=== PATIENT | male | born 1990 | race Caucasian/White ===

== ENCOUNTER 2022-01-05 15:17 | Emergency (ER) | payer MEDICAID, SELFPAY ==
[2022-01-05] VITALS (8 sets, daily range): BP systolic 107–151; BP diastolic 68–94; PULSE 71–98; RESP 17–22; TEMP 36.9; O2SAT 93–98; BMI 31.1
--- NOTE | 2022-01-05 15:20 | ECG_ITS ---
APPROVED REPORT Exam: Resting ECG HR:79 bpm ECG Measurements Heart Rate 79 AXES NH 145 P 56 QRSd 99 QRS 53 QT 329 T -18 QTc 364 Conclusion SINUS RHYTHM WITH SINUS ARRHYTHMIA MODERATE T-WAVE ABNORMALITY, CONSIDER INFERIOR ISCHEMIA [-0.1+ mV T-WAVE IN II/aVF] ABNORMAL ECG UNCONFIRMED REPORT Electronically signed by : Aj Quezada MD 01/05/2022 21:05:07
--- NOTE | 2022-01-05 15:20 | XR_ITS ---
FINAL REPORT CLINICAL HISTORY: cp FINDINGS: The heart size is normal. The mediastinum is normal. There is mild right lung base atelectasis or scarring. There are no pleural effusions. There is no pneumothorax. There is no osseous abnormality. IMPRESSION: Mild right lung base atelectasis or scarring. Reviewed, Interpreted and Dictated by Néstor Gibbs III, MD Transcribed by Jonas Cornelius Authenticated by Néstor Gibbs III, MD on 01/05/2022 03:56:[address] [facility]
--- NOTE | 2022-01-05 15:21 | HMH.EDGENADL ---
ED Disposition Clinical Impression: Chest wall pain, Palpitations Disposition: Home, Self-Care Condition on Discharge: Good Instructions: DI for Chest Pain, DI for Palpitations Additional Instructions: You have been evaluated for chest pain, palpitations. Please take anti-inflammatory medication like naproxen or ibuprofen as scheduled for the next few days. Follow-up with your primary care doctor. Follow-up with cardiology. Return to the emergency department at once for any new or worsening symptoms, chest pain, shortness of breath, other concerns. Prescriptions: Ibuprofen [Ibuprofen 600mg Tablet] 600 mg PO Q8 #18 tab Transmission Status: Pending to [id number] Referrals: Mana Sánchez APRN [Primary Care Provider] - Rohit Ferrer MD [Staff Physician] - Time of Disposition: 19:15 - Critical Care Critical Care Time: No Attestation: On , the high probability of a clinically significant, sudden or life threatening deterioration of the following system(s) required my full and direct attention, intervention and personal management. The time I documented below is in addition to time spent performing reported procedures but includes the following listed in this critical care notation. Medical Decision Making - Medical Records Medical records reviewed: Yes: I reviewed the patient's medical records. - [place] Inquiry Pt receiving controlled substance: No Vital Signs: 01/05/22 15:17 01/05/22 15:30 01/05/22 16:00 Temperature 98.4 F Temperature Source Oral Pulse Rate 98 H 88 Pulse Rate [Left Radial] 93 H Respiratory Rate 18 22 22 Blood Pressure 132/78 132/78 Blood Pressure [Right Arm] 151/94 H Blood Pressure Mean [Right Arm] 113 Blood Pressure Source Automatic Cuff Automatic Cuff Blood Pressure Source [Right Arm] Automatic Cuff Blood Pressure Position Sitting Sitting Blood Pressure Position [Right Arm] Sitting 02 Sat by Pulse Oximetry 98 94 L 96 Oxygen Delivery Method Room Air Room Air Room Air 01/05/22 16:31 01/05/22 17:01 01/05/22 17:30 Temperature Temperature Source Pulse Rate 79 75 71 Pulse Rate [Left Radial] Respiratory Rate 22 22 19 Blood Pressure 121/70 107/68 L 113/73 Blood Pressure [Right Arm] Blood Pressure Mean [Right Arm] Blood Pressure Source Automatic Cuff Automatic Cuff Automatic Cuff Blood Pressure Source [Right Arm] Blood Pressure Position Sitting Sitting Sitting Blood Pressure Position [Right Arm] 02 Sat by Pulse Oximetry 93 L 94 L 96 Oxygen Delivery Method Room Air Room Air Room Air 01/05/22 18:00 Temperature Temperature Source Pulse Rate 74 Pulse Rate [Left Radial] Respiratory Rate 17 Blood Pressure 121/84 Blood Pressure [Right Arm] Blood Pressure Mean [Right Arm] Blood Pressure Source Automatic Cuff Blood Pressure Source [Right Arm] Blood Pressure Position Sitting Blood Pressure Position [Right Arm] 02 Sat by Pulse Oximetry 97 Oxygen Delivery Method Room Air - Lab Data Lab Results 01/05/22 15:20: WBC 8.9, RBC 5.28, Hgb 15.8, Hct 43.7, MCV 82.8, MCH 29.9, MCHC 36.1 H, RDW 13.2, Plt Count 280, MPV 7.4, Neut % (Auto) 54.1, Lymph % (Auto) 37.2, Alfalfa % (Auto) 5.5, Eos % (Auto) 2.0, Baso % (Auto) 1.2, Neut # (Auto) 4.8, Lymph # (Auto) 3.3, Alfalfa # (Auto) 0.5, Eos # (Auto) 0.2, Baso # (Auto) 0.1 01/05/22 15:20: D-Dimer 0.42 01/05/22 15:20: Sodium 141, Potassium 3.8, Chloride 104, Carbon Dioxide 27, Anion Gap 13.8, BUN 17, Creatinine 1.20, Estimated GFR 70, Est GFR ( Amer) 84, Glucose 132 H, Calcium 9.8, Phosphorus 3.8, Magnesium 1.8, Total Bilirubin 0.7, AST 35, ALT 38, Alkaline Phosphatase 54, Troponin I < 0.01, Total Protein 7.5, Albumin 4.7, Globulin 2.8, Albumin/Globulin Ratio 1.7, TSH 2.82 01/05/22 18:30: Troponin I < 0.01 Result diagrams: 01/05/22 15:20 01/05/22 15:20 Orders (Tests/Meds): ED MEDICATIONS Discontinued Medications Generic Name Dose Route Start Last Admin Trade Name Frealex P
[2022-01-05 15:34] LABS: Basophils # 0.1 K/mm3 (0-0.2); Basophils % 1.2 % (0.1-2.0); Eosinophils # 0.2 K/mm3 (0.0-0.4); Hematocrit 43.7 % (42.0-52.0); Hemoglobin 15.8 g/dL (14.1-18.0); Lymphocytes # 3.3 K/mm3 (0.7-4.5); Lymphocytes % 37.2 % (10-50); Mean Corpuscular HGB Conc 36.1 g/dL (31.8-35.4); Mean Corpuscular Hemoglobin 29.9 pg (27.0-31.2); Mean Corpuscular Volume 82.8 fl (80-94); Mean Platelet Volume 7.4 fl (7.4-10.4); Monocytes # 0.5 K/mm3 (0.1-1.0); Monocytes % 5.5 % (1.7-9.3); Neutrophils # 4.8 K/mm3 (1.8-7.8); Neutrophils % 54.1 % (37.0-80.0); Platelet Count 280 K/mm3 (142-424); Red Blood Count 5.28 M/mm3 (4.60-6.20); Red Cell Distribution Width 13.2 % (11.5-17.5); White Blood Count 8.9 K/mm3 (4.8-10.8)
[2022-01-05 15:39] LABS: Alanine Aminotransferase 38 U/L (12-78); Albumin Level 4.7 g/dl (3.5-5.0); Albumin/Globulin Ratio 1.7 (1.1-1.8); Alkaline Phosphatase 54 U/L (38-126); Anion Gap 13.8 mEq/L (5-15); Aspartate Amino Transferase 35 U/L (17-59); Bilirubin,Total 0.7 mg/dl (0.2-1.3); Blood Urea Nitrogen 17 mg/dl (9-20); Calcium 9.8 mg/dl (8.4-10.2); Carbon Dioxide 27 mmol/L (22.0-30.0); Chloride 104 mmol/L (98-107); Estimated Glomerular Filt Rate 70 ml/min (>60); GFR (African American) 84 ML/MIN (>60); Globulin 2.8 g/dL (1.3-3.2); Glucose 132 mg/dl (74-100); Magnesium 1.8 mg/dl (1.6-2.3); Phosphorous 3.8 mg/dl (2.5-4.5); Potassium 3.8 mmoL/L (3.5-5.1); Sodium 141 mmol/L (136-145); Total Protein,Serum 7.5 g/dl (6.3-8.2)
[2022-01-05 15:44] LABS: D-Dimer 0.42 ug/mL (0.0-0.5)
[2022-01-05 16:00] LABS: Troponin I < 0.01 ng/ml (0.00-0.034)
[2022-01-05 16:12] LABS: Thyroid Stimulating Hormone 2.82 uIU/mL (0.465-4.68)
--- NOTE | 2022-01-05 17:25 | PC.NURSE ---
ED MD speaking with patient at BS
--- NOTE | 2022-01-05 17:37 | ECG_ITS ---
APPROVED REPORT Exam: Resting ECG HR:58 bpm ECG Measurements Heart Rate 58 AXES DE 169 P 36 QRSd 105 QRS 54 QT 374 T 36 QTc 371 Conclusion SINUS BRADYCARDIA NONSPECIFIC ST & T-WAVE ABNORMALITY BORDERLINE ECG UNCONFIRMED REPORT Electronically signed by : Aj Quezada MD 01/06/2022 17:37:42
[2022-01-05 19:01] LABS: Troponin I < 0.01 ng/ml (0.00-0.034)
== END 2022-01-05 20:08 | disposition home or self-care (01) ==
PROVIDERS: Emergency Provider Emergency Medicine; PCP Nurse Practitioner Family
DX: R07.89 Other chest pain (principal); R00.2 Palpitations
CPT/HCPCS: 36415; 71045; 80053; 83735; 84100; 84443; 84484; 85025; 85378; 93005; 99285

== ENCOUNTER → 2022-07-09 15:30 | Outpatient (CLI) | payer MEDICAID, SELFPAY ==
--- NOTE | 2022-07-09 15:36 | CT_ITS ---
FINAL REPORT TECHNIQUE: Axial CT images were obtained through the sinuses/facial bones. Coronal reformats were obtained. This study was performed with techniques to keep radiation doses as low as reasonably achievable (ALARA). Individualized dose reduction techniques using automated exposure control or adjustment of mA and/or kV according to the patient's size were employed. CLINICAL HISTORY: deviated septum FINDINGS: There is mild mucoperiosteal thickening in the ethmoid air cells, maxillary and sphenoid sinuses. There are no air-fluid levels. The the right ostiomeatal unit is patent. There is soft tissue bridging the left ostiomeatal unit. On coronal imaging the nasal septum is deviated to the left. No fractures are identified. IMPRESSION: Mild nasal septal deviation to the left. Mild chronic changes of sinusitis. Reviewed, Interpreted and Dictated by Luis F Santiago MD Transcribed by Jonas Cornelius Authenticated and [facility]
== END ==
PROVIDERS: PCP Nurse Practitioner Family; Visit Provider Student in an Organized Health Care Education/Training Program
DX: J34.2 Deviated nasal septum (principal)
CPT/HCPCS: 70486

== ENCOUNTER 2022-09-22 15:33 | Emergency (ER) | payer MEDICAID, SELFPAY ==
[2022-09-22 15:34] VITALS: BP 133/92; PULSE 82; RESP 17; TEMP 36.6; O2SAT 99; BMI 34.4
[2022-09-22 16:00] VITALS: BP 133/92; PULSE 82; RESP 17; TEMP 36.6; O2SAT 99; BMI 34.3
--- NOTE | 2022-09-22 16:26 | EXP.UTC ---
Discharge Plan Disposition Patient Disposition: Home, Self-Care Condition: Good Prescriptions Prescriptions: No Action fexofenadine [Belinda Allergy] 60 mg tablet 60 mg PO BID PRN azelastine 137 mcg (0.1 %) aerosol,spray 1 spray intranasal BID Qty: 30 6RF Rx Instructions: administer into each nostril Referrals Follow up/Referrals: Mana Sánchez APRN [Primary Care Provider] - See instructions Activity Restrictions/Add. Instructions Additional Instructions/Restrictions: Call and make appointment with your Primary Care Physician for further evaluation and treatment if needed Keep a log of your blood pressure readings make sure that you are using a cuff that measures acurately Continue to use your Nasocort Straight to ER if any life threatening symptoms Follow up with ENT if needed Clinical Impressions Clinical Impression: Blood pressure check Stand Alone Forms Stand Alone Forms: Work/School Release Instructions Patient Instructions: Blood Pressure Testing and Measurement, The [employer] Diet Discharge ED Provider: Yesi Mireles [facility] General Stated complaint: dizzy; lightheaded; Mode of Arrival: Ambulatory Source of Information: Patient Limitations: No Limitations Time Seen by Provider: 09/22/22 16:26 Description of Symptoms (Recalled from Triage Doc. by RN): Patient c/o dizzy/light headedness that has been present for 6 months. He was evaluated with his PCP and told he had fluid in his ears, possibly. Patient has no new complaints today. He just wanted to get a check-up because it has been awhile. HEENT Symptoms (Recalled from RN notes): No Resp Symptoms (Recalled from RN notes): No Skin Symptoms (Recalled from RN notes): No MS Symptoms (Recalled from RN notes): No Functional Status (Recalled from RN notes): wnl History of Present Illness Provider Complaint: Patient states that he has had some dizziness and light headedness over the last 6mths and has seen his PCP and ENT and they said he had fluid in his ears State that he has been checking his blood pressure and he feels like it has been up States that the highest being 140/90 and it makes him feel nervous States that he has been recording it and lost the paper and has made several appointments with his PCP but missed them States that today he is feeling ok and not having any dizziness or lightheaded but got to thinking about it and wanted to get his blood pressure checked and see if he can get a check up since he missed the one with PCP Related Data Home Medications Medication Instructions Recorded Confirmed fexofenadine 60 mg tablet (Belinda 60 mg PO BID PRN 06/22/22 07/14/22 Allergy) Previous Rx's Medication Instructions Recorded azelastine 137 mcg (0.1 %) nasal 1 spray intranasal BID #30 mL 06/22/22 spray aerosol Allergies Allergy/AdvReac Type Severity Reaction Status Date / Time No Known Allergies Allergy Verified 07/14/22 15:46 Worker's Comp Is this a Worker's Comp case?: No [facility] Disclaimer: The information contained in this section may have been updated after the patient was seen, as this information can be updated by other users. 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 Anxiety Deviated septum Surgical History History of wisdom tooth extraction, class I edentulism Family History Grandmother Epilepsy Social History Smoking Status: Current every day smoker tobacco type: cigarettes and smokeless tobacco years smoked: 10 quit status: considering quitting alcohol intake: never current occupational status: unemployed Travel in the last 8 weeks: None ROS Obtained: Yes All systems reviewed & no additional complaints except as documented and Yes Systems reviewed as appropriate & no additi
[2022-09-22 16:44] VITALS: BP 133/92; PULSE 82; RESP 17; TEMP 36.6; O2SAT 99
== END 2022-09-22 16:47 | disposition home or self-care (01) ==
PROVIDERS: Emergency Provider Nurse Practitioner; PCP Nurse Practitioner Family
DX: R42 Dizziness and giddiness (principal)
CPT/HCPCS: 99212; G0463

== ENCOUNTER 2022-10-02 10:04 | Emergency (ER) | payer MEDICAID, SELFPAY ==
[2022-10-02 10:50] VITALS: BP 148/101; PULSE 70; RESP 18; TEMP 36.9; O2SAT 99; BMI 29.2
--- NOTE | 2022-10-02 11:17 | EXP.UTC ---
Discharge Plan Disposition Patient Disposition: Home, Self-Care Condition: Good Prescriptions Prescriptions: New permethrin [Elimite] 5 % cream 1 applic topical Q14D Qty: 60 0RF Rx Instructions: apply second treatment 14 days after first treatment if live mites remain No Action fexofenadine [Belinda Allergy] 60 mg tablet 60 mg PO BID PRN azelastine 137 mcg (0.1 %) aerosol,spray 1 spray intranasal BID Qty: 30 6RF Rx Instructions: administer into each nostril Referrals Follow up/Referrals: Mana Sánchez APRN [Primary Care Provider] - See instructions Activity Restrictions/Add. Instructions Additional Instructions/Restrictions: wash all clothes and bed clothes in hot water Clinical Impressions Clinical Impression: Bug bite Instructions Patient Instructions: Insect Bites and Stings Discharge ED Provider: Angela ([facility])Isabel [facility] HPI General Stated complaint: Rash on legs w/ burning and itching Mode of Arrival: Ambulatory Source of Information: Patient Limitations: No Limitations Time Seen by Provider: 10/02/22 11:17 Description of Symptoms (Recalled from Triage Doc. by RN): PATIENT C/O ITCHY, BURNING RASH TO BILATERAL THIGHS AND FOREARMS HEENT Symptoms (Recalled from RN notes): No Resp Symptoms (Recalled from RN notes): No Skin Symptoms (Recalled from RN notes): Yes MS Symptoms (Recalled from RN notes): No Functional Status (Recalled from RN notes): WNL History of Present Illness Provider Complaint: 32 yr old male presents for a rash to legs, and arms. pt states he recently got a mini pig and the vet said it had mites. pt states he has tried everything otc and nothing is helping this rash and itching. Related Data Home Medications Medication Instructions Recorded Confirmed fexofenadine 60 mg tablet (Belinda 60 mg PO BID PRN 06/22/22 07/14/22 Allergy) Previous Rx's Medication Instructions Recorded azelastine 137 mcg (0.1 %) nasal 1 spray intranasal BID #30 mL 06/22/22 spray aerosol permethrin 5 % topical cream 1 applic topical Q14D 2 doses #60 10/02/22 (Elimite) grams Allergies Allergy/AdvReac Type Severity Reaction Status Date / Time No Known Allergies Allergy Verified 07/14/22 15:46 Worker's Comp Is this a Worker's Comp case?: No PFSH PFSH Disclaimer: The information contained in this section may have been updated after the patient was seen, as this information can be updated by other users. 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 , YARROW GATHERER) Anxiety Deviated septum Surgical History , YARROW GATHERER) History of wisdom tooth extraction, class I edentulism Family History , YARROW GATHERER) Epilepsy Grandmother Social History , YARROW GATHERER) Smoking Status: Current every day smoker tobacco type: cigarettes and smokeless tobacco years smoked: 10 quit status: considering quitting alcohol intake: never current occupational status: unemployed Travel in the last 8 weeks: None ROS Obtained: Yes All systems reviewed & no additional complaints except as documented Constitutional Constitutional: Reports system reviewed and no additional complaints, except as documented Eyes Eyes: Reports system reviewed and no additional complaints, except as documented ENT Ears, Nose, Mouth, and Throat: Reports system reviewed and no additional complaints, except as documented Cardiovascular Cardiovascular: Reports system reviewed and no additional complaints, except as documented Respiratory Respiratory: Reports system reviewed and no additional complaints, except as documented Musculoskeletal Musculoskeletal: Reports system reviewed and no additional complaints, except as documented Integumentary/Breasts Skin/Breast: Reports system reviewed and no additional complaints, except as documented, Rep
[2022-10-02 11:32] VITALS: BP 148/101; PULSE 70; RESP 18; TEMP 36.9; O2SAT 99
== END 2022-10-02 11:45 | disposition home or self-care (01) ==
PROVIDERS: Emergency Provider Nurse Practitioner Family; PCP Nurse Practitioner Family
DX: S70.362A Insect bite (nonvenomous), left thigh, initial encounter (principal); S70.361A Insect bite (nonvenomous), right thigh, initial encounter; S50.862A Insect bite (nonvenomous) of left forearm, initial encounter; S50.861A Insect bite (nonvenomous) of right forearm, initial encounter; R21 Rash and other nonspecific skin eruption; L29.8 Other pruritus
CPT/HCPCS: 96372; 99212; 99213; G0463

== ENCOUNTER 2023-04-13 17:15 | Emergency (ER) | payer MEDICAID, SELFPAY ==
--- NOTE | 2023-04-13 17:15 | ECG_ITS ---
APPROVED REPORT Exam: Resting ECG HR:73 bpm ECG Measurements Heart Rate 73 AXES SD 157 P 38 QRSd 102 QRS 55 QT 364 T 33 QTc 390 Conclusion SINUS RHYTHM NONSPECIFIC T-WAVE ABNORMALITY BORDERLINE ECG UNCONFIRMED REPORT Electronically signed by : Aj Quezada MD 04/15/2023 08:42:52
[2023-04-13 17:18] VITALS: BP 145/81; PULSE 81; RESP 16; TEMP 36.9; O2SAT 98; BMI 30.7
--- NOTE | 2023-04-13 17:22 | XR_ITS ---
PROCEDURE INFORMATION: Exam: XR Chest Exam date and time: 04/13/2023 5:25 PM Age: 32 years old Clinical indication: Pain; Left-sided; Additional info: Chest pain TECHNIQUE: Imaging protocol: Radiologic exam of the chest. Views: 1 view. COMPARISON: CR XR CHEST PORTABLE 01/05/2022 3:23 PM FINDINGS: Lungs: See Pleural spaces finding. Pleural spaces: Low lung volumes are present without large pleural effusions or consolidations. Heart/Mediastinum: Unremarkable. No cardiomegaly. Bones/joints: Unremarkable. IMPRESSION: No acute findings.
--- NOTE | 2023-04-13 17:26 | HMH.EDGENADL ---
Discharge Plan Disposition Patient Disposition: Home, Self-Care Condition: Good Prescriptions Prescriptions: No Action fexofenadine [Belidna Allergy] 60 mg tablet 60 mg PO BID PRN azelastine 137 mcg (0.1 %) aerosol,spray 1 spray intranasal BID Qty: 30 6RF Rx Instructions: administer into each nostril permethrin [Elimite] 5 % cream 1 applic topical Q14D Qty: 60 0RF Rx Instructions: apply second treatment 14 days after first treatment if live mites remain Referrals Follow up/Referrals: Provider,Referral, MD [Referring] - See instructions Activity Restrictions/Add. Instructions Additional Instructions/Restrictions: Please follow-up with your primary care provider. Please return to the emergency department if you develop any new or worsening symptoms or become concerned for your health. Clinical Impressions Clinical Impression: Chest wall pain Instructions Patient Instructions: DI for Atypical Chest Pain Discharge ED Provider: Marc Lang General Adult HPI General Chief complaint: Chest Pain Stated complaint: chest pain Time Seen by Provider: 04/13/23 17:25 Mode of Arrival: Ambulatory Source of Information: Patient Limitations: No Limitations Description of Symptoms (Recalled from ER Triage Doc. by RN): Pt reports intermittent chest pain that began earlier today. Pt describes pain as intermittent in nature, sharp, lasts for approx 5 minutes at a times. Pt denies SOA, fever and cough History of Present Illness HPI narrative: 32-year-old male, reported history of anxiety presents with intermittent chest pain, left-sided, began this morning but was also present yesterday. Reports no cardiac history. Denies any shortness of breath or abdominal pain. No recent fever or illness. Related Data Home Medications Medication Instructions Recorded Confirmed fexofenadine 60 mg tablet (Belinda 60 mg PO BID PRN 06/22/22 07/14/22 Allergy) Previous Rx's Medication Instructions Recorded azelastine 137 mcg (0.1 %) nasal 1 spray intranasal BID #30 mL 06/22/22 spray aerosol permethrin 5 % topical cream 1 applic topical Q14D 2 doses #60 10/02/22 (Elimite) grams Allergies Allergy/AdvReac Type Severity Reaction Status Date / Time No Known Allergies Allergy Verified 07/14/22 15:46 [facility] Disclaimer: The information contained in this section may have been updated after the patient was seen, as this information can be updated by other users. 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 , [employer]) Anxiety Deviated septum Surgical History , [employer] ME[employer] C[employer]TER) History of wisdom tooth extraction, class I edentulism Family History , [employer] ME[employer] C[employer]TER) Epilepsy Grandmother Social History , [employer] ME[employer] C[employer]TER) Smoking Status: Former smoker years smoked: 10 quit status: considering quitting alcohol intake: never current occupational status: unemployed Travel in the last 8 weeks: None ROS Obtained: Yes All systems reviewed & no additional complaints except as documented Physical Exam General General appearance: alert and in no apparent distress Head Head exam: atraumatic and normocephalic Eye Eye exam: Present normal appearance, PERRL and EOMI ENT ENT exam: Present normal oropharynx and normal external ear exam Neck Neck exam: Present normal inspection and full ROM Chest Chest inspection: Present normal inspection and symmetric chest wall rise; Absent tenderness Respiratory Respiratory exam: Present normal lung sounds bilaterally; Absent respiratory distress Cardiovascular Cardiovascular exam: Present regular rate and normal rhythm Abdominal Exam Abdominal exam: Present soft; Absent distention, tenderness or guarding Extremities Exam Extremities exam: Present normal inspection; Absent edema or joint swelling
[2023-04-13 17:42] LABS: Basophils % 0.4 % (0.1-2.0); Eosinophils # 0.2 K/mm3 (0.0-0.4); Eosinophils % 2.3 % (0.1-12.0); Hematocrit 47.3 % (42.0-52.0); Lymphocytes # 2.8 K/mm3 (0.7-4.5); Lymphocytes % 37.1 % (10-50); Mean Corpuscular HGB Conc 33.7 g/dL (31.8-35.4); Mean Corpuscular Hemoglobin 28.3 pg (27.0-31.2); Mean Corpuscular Volume 83.9 fl (80-94); Mean Platelet Volume 7.1 fl (7.4-10.4); Monocytes # 0.5 K/mm3 (0.1-1.0); Monocytes % 6.5 % (1.7-9.3); Neutrophils % 53.7 % (37.0-80.0); Platelet Count 245 K/mm3 (142-424); Red Blood Count 5.64 M/mm3 (4.60-6.20); Red Cell Distribution Width 13.3 % (11.5-17.5); White Blood Count 7.4 K/mm3 (4.8-10.8)
--- NOTE | 2023-04-13 17:42 | PC.NURSE ---
Dr. Lang at BS for patient eval
[2023-04-13 17:45] LABS: Chloride 103 mmol/L (98-107)
[2023-04-13 17:46] LABS: Potassium 3.9 mmoL/L (3.5-5.1); Sodium 141 mmol/L (136-145)
[2023-04-13 17:49] LABS: Anion Gap 15.9 mEq/L (5-15); Blood Urea Nitrogen 20 mg/dl (9-20); Calcium 9.9 mg/dl (8.4-10.2); Carbon Dioxide 26 mmol/L (22.0-30.0); Creatinine Clearance Estimated 113 mL/min (50-200); Estimated Glomerular Filt Rate 63 ml/min (>60); GFR (African American) 76 ML/MIN (>60); Glucose 99 mg/dl (74-100)
[2023-04-13 17:57] VITALS: PULSE 68
[2023-04-13 18:01] VITALS: BP 132/83; PULSE 69; RESP 20; O2SAT 96
[2023-04-13 18:03] LABS: Troponin I < 0.01 ng/ml (0.00-0.034)
[2023-04-13 18:15] VITALS: BP 132/83; PULSE 69; RESP 20; TEMP 36.9
== END 2023-04-13 18:16 | disposition home or self-care (01) ==
PROVIDERS: Emergency Provider Emergency Medicine; PCP Nurse Practitioner Family
DX: R07.9 Chest pain, unspecified (principal); F41.9 Anxiety disorder, unspecified; Z87.891 Personal history of nicotine dependence
CPT/HCPCS: 71045; 80048; 84484; 85025; 93005; 99285

== ENCOUNTER → 2023-07-14 10:59 | Outpatient (CLI) | payer MEDICAID, SELFPAY ==
[2023-07-14 11:35] LABS: Basophils % 0.6 % (0.1-2.0); Eosinophils # 0.2 K/mm3 (0.0-0.4); Eosinophils % 3.1 % (0.1-12.0); Hematocrit 44.6 % (42.0-52.0); Hemoglobin 16.1 g/dL (14.1-18.0); Lymphocytes # 2.1 K/mm3 (0.7-4.5); Lymphocytes % 36.4 % (10-50); Mean Corpuscular HGB Conc 36.1 g/dL (31.8-35.4); Mean Corpuscular Hemoglobin 29.9 pg (27.0-31.2); Mean Platelet Volume 7.6 fl (7.4-10.4); Monocytes # 0.4 K/mm3 (0.1-1.0); Monocytes % 6.8 % (1.7-9.3); Platelet Count 199 K/mm3 (142-424); Red Blood Count 5.37 M/mm3 (4.60-6.20); Red Cell Distribution Width 13.1 % (11.5-17.5); White Blood Count 5.7 K/mm3 (4.8-10.8)
[2023-07-14 11:46] LABS: Hemoglobin A1C 5.5 % (4.0-6.0)
[2023-07-14 12:15] LABS: Alanine Aminotransferase 49 U/L (12-78); Albumin Level 4.9 g/dl (3.5-5.0); Albumin/Globulin Ratio 1.6 (1.1-1.8); Alkaline Phosphatase 55 U/L (38-126); Anion Gap 13.7 mEq/L (5-15); Aspartate Amino Transferase 46 U/L (17-59); Bilirubin,Total 0.5 mg/dl (0.2-1.3); Blood Urea Nitrogen 19 mg/dl (9-20); Carbon Dioxide 31 mmol/L (22.0-30.0); Chloride 100 mmol/L (98-107); Chol/HDL Ratio 3.3 (1-3.5); Cholesterol 163 mg/dl (140-200); Estimated Glomerular Filt Rate 69 ml/min (>60); GFR (African American) 83 ML/MIN (>60); Glucose 102 mg/dl (74-100); HDL Cholesterol 50 mg/dl (40-60); Potassium 4.7 mmoL/L (3.5-5.1); Sodium 140 mmol/L (136-145); Total Protein,Serum 7.9 g/dl (6.3-8.2); Triglycerides 94 mg/dl (30-150); VLDL Cholesterol 19 mg/dL (0-40)
[2023-07-14 12:26] LABS: Direct LDL Cholesterol 87.12 mg/dL (100-129)
[2023-07-14 12:45] LABS: Thyroid Stimulating Hormone 3.56 uIU/mL (0.465-4.68)
== END ==
LOC: LAB 11:00
PROVIDERS: PCP Nurse Practitioner Family; Visit Provider Nurse Practitioner Family
DX: Z00.00 Encounter for general adult medical examination without abnormal findings (principal); R00.2 Palpitations
CPT/HCPCS: 36415; 80053; 80061; 83036; 84443; 85025

== ENCOUNTER 2023-07-29 11:03 | Emergency (ER) | payer MEDICAID, SELFPAY ==
[2023-07-29 11:04] VITALS: BP 135/78; PULSE 68; RESP 18; TEMP 37.1; O2SAT 98; BMI 31.9
--- NOTE | 2023-07-29 11:53 | EXP.UTC ---
Discharge Plan Disposition Patient Disposition: Home, Self-Care Condition: Good Prescriptions Prescriptions: New azithromycin [Zithromax] 250 mg tablet 250 mg PO UD DOSE PK Qty: 6 0RF Rx Instructions: Take two (2) tablets today, then one (1) tablet days #2 thru #5 benzonatate [benzonatate] 100 mg capsule 100 mg PO TIDP PRN (Reason: Cough) Qty: 30 0RF prednisone [prednisone] 20 mg tablet 20 mg PO BID 3 Days Qty: 6 0RF No Action fexofenadine [Belinda Allergy] 60 mg tablet 60 mg PO BID PRN (Reason: allergies) azelastine 137 mcg (0.1 %) aerosol,spray 1 spray intranasal BID Qty: 30 6RF Rx Instructions: administer into each nostril Referrals Follow up/Referrals: Pastora Clayton APRN [Primary Care Provider] - See instructions Activity Restrictions/Add. Instructions Additional Instructions/Restrictions: Drink plenty of fluids. Take tylenol or ibuprofen for pain or fever. Take the medications as directed. Follow up with your regular doctor. GO TO THE ER FOR ANY WORSENING SYMPTOMS Clinical Impressions Clinical Impression: Sinusitis, Acute viral syndrome Stand Alone Forms Stand Alone Forms: Work/School Release Instructions Patient Instructions: Sore Throat, DI for Pharyngitis/Tonsillopharyngitis -- Adult, DI for Sinusitis Discharge ED Provider: Jose Elizalde [facility] General Stated complaint: head congestion sore throat Time Seen by Provider: 07/29/23 11:53 History of Present Illness Provider Complaint: He states that for the past 2 days he has had sinus congestion and sore throat. Related Data Home Medications Medication Instructions Recorded Confirmed fexofenadine 60 mg tablet (Belinda 60 mg PO BID PRN allergies 06/22/22 07/29/23 Allergy) Previous Rx's Medication Instructions Recorded azelastine 137 mcg (0.1 %) nasal 1 spray intranasal BID #30 mL 06/22/22 spray aerosol azithromycin 250 mg tablet 250 mg PO UD DOSE PK #6 tabs 07/29/23 (Zithromax) benzonatate 100 mg capsule 100 mg PO TIDP PRN Cough #30 caps 07/29/23 prednisone 20 mg tablet 20 mg PO BID 3 days #6 tabs 07/29/23 Allergies Allergy/AdvReac Type Severity Reaction Status Date / Time No Known Allergies Allergy Verified 07/29/23 11:57 [facility] Disclaimer: The information contained in this section may have been updated after the patient was seen, as this information can be updated by other users. 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 , SPA HOST) Anxiety Deviated septum Surgical History , SPA HOST) History of wisdom tooth extraction, class I edentulism Family History , SPA HOST) Epilepsy Grandmother Social History Smoking Status: Former smoker tobacco type: cigarettes and smokeless tobacco years smoked: 10 quit status: considering quitting alcohol intake: never current occupational status: unemployed Travel in the last 8 weeks: None ROS Obtained: Yes All systems reviewed & no additional complaints except as documented Constitutional Constitutional: Reports poor appetite Eyes Eyes: Reports system reviewed and no additional complaints, except as documented ENT Ears, Nose, Mouth, and Throat: Reports as per HPI Cardiovascular Cardiovascular: Reports system reviewed and no additional complaints, except as documented and Denies chest pain Respiratory Respiratory: Denies shortness of breath, Denies chest congestion, Reports cough, Denies stridor and Denies wheezing Gastrointestinal Gastrointestingal: Reports system reviewed and no additional complaints, except as documented; Denies abdominal pain, diarrhea or vomiting Musculoskeletal Musculoskeletal: Reports system reviewed and no additional complaints, except as documented and Denies arthralgias Integumentary/Breasts Skin/Jessica
[2023-07-29 12:13] LABS: UTC Influenza A Antigen Negative (Negative); UTC Strep Screen (Rapid) Negative (Negative)
[2023-07-29 12:14] LABS: UTC Influenza B Antigen Negative (Negative)
[2023-07-29 13:10] VITALS: BP 135/78; PULSE 68; RESP 18; TEMP 37.1; O2SAT 98
== END 2023-07-29 13:10 | disposition home or self-care (01) ==
PROVIDERS: Emergency Provider Nurse Practitioner Family; PCP Nurse Practitioner Family
DX: J01.90 Acute sinusitis, unspecified (principal); R07.0 Pain in throat; R09.81 Nasal congestion; B34.9 Viral infection, unspecified; Z87.891 Personal history of nicotine dependence
CPT/HCPCS: 87635; 87804; 87880; 99212; 99214; G0463

== ENCOUNTER 2023-09-17 11:24 | Emergency (ER) | payer OTHER, SELFPAY ==
[2023-09-17 11:35] VITALS: BP 112/65; PULSE 80; RESP 20; TEMP 37.3; O2SAT 97; BMI 30.2
--- NOTE | 2023-09-17 11:42 | ED_ITS ---
Discharge Plan Disposition Patient Disposition: Home, Self-Care Condition: Good Prescriptions Prescriptions: New prednisone [prednisone] 20 mg tablet 20 mg PO BID 5 Days Qty: 10 0RF benzonatate 100 mg capsule 100 mg PO TID PRN (Reason: cough) Qty: 30 0RF amoxicillin-pot clavulanate 875-125 mg Tablet 1 tab PO Q12H Qty: 20 0RF guaifenesin [Mucinex] 600 mg tablet extended release 12hr 1,200 mg PO BID PRN (Reason: cough) Qty: 20 0RF No Action azelastine 137 mcg (0.1 %) aerosol,spray 1 spray INTRANASAL BID Patient Comments: USE 1 SPRAY(S) IN EACH NOSTRIL TWICE DAILY Referrals Follow up/Referrals: Provider,Referral, MD [Primary Care Provider] - See instructions Activity Restrictions/Add. Instructions Additional Instructions/Restrictions: * Start antibiotic today. Be sure to complete entire prescription even if feeling better * Monitor temp. Tylenol every 4 hours as needed and / or ibuprofen every 6 hours as needed ( As long as your primary care physician has told you that it ok to take both. For fever/aches/pains ER if no less than 101 despite Tylenol or Motrin * Humidifier/vaporizer or hot steamy shower * Mucinex during the day for your cough and cough suppressant only at night. Be sure to drink lots of water. Insurance may not cover a prescriptions for mucinex. Might be cheaper to get 400mg tablets and take 2 tablet in the morning, mid-day and evening with lots of water. *Promethazine DM cough syrup will cause drowsiness. Use only at night. No driving, operating machinery or caring for small children after taking it *Tessalon Perles will not cause drowsiness but use at bedtime to help stop cough so that you may get some rest. *Start steroid today. Helps with inflammation therefore, cough and wheezing. Follow directions on the package. Reviewed side effects. Patient reports taking them before. Follow up IMMEDIATELY for new or worsening of symptoms OR no noticeable improvement over the next 48-72 hours. 911 immediately for any life threatening symptoms such as chest pain or difficulty breathing Clinical Impressions Clinical Impression: Sinusitis Qualifiers: Sinusitis location: unspecified location Chronicity: unspecified Qualified Code(s): J32.9 - Chronic sinusitis, unspecified Instructions Patient Instructions: DI for Sinusitis, Sinusitis Discharge ED Provider: Yesi Mireles [facility] [place] HPI General Stated complaint: cough,congestion Mode of Arrival: Ambulatory Source of Information: Patient Limitations: No Limitations Time Seen by Provider: 09/17/23 11:42 Description of Symptoms (Recalled from Triage Doc. by RN): PATIENT C/O CHEST AND HEAD CONGESTION, HEADACHE, BODY ACHES, COUGH AND NASAL CONGESTION SINCE YESTERDAY HEENT Symptoms (Recalled from RN notes): Yes Resp Symptoms (Recalled from RN notes): Yes Skin Symptoms (Recalled from RN notes): No MS Symptoms (Recalled from RN notes): No Functional Status (Recalled from RN notes): WNL History of Present Illness Provider Complaint: Patient states that he was already feeling sick but went out into the weather yesterday and it got worse States that he is having sinus pain and pressure, pressure behind his eyes, scratchy throat, feeling achy, headache and feeling like it is trying to move into his chest States that this morning he was feeling worse so he came in Related Data Home Medications Medication Instructions Recorded Confirmed azelastine 137 mcg (0.1 %) nasal 1 spray intranasal BID 09/17/23 09/17/23 spray aerosol Previous Rx's Medication Instructions Recorded amoxicillin 875 mg-potassium 1 tab PO Q12H #20 tabs 09/17/23 clavulanate 125 mg tablet benzonatate 100 mg capsule 100 mg PO TID PRN cough #30 caps 09/17/23 guaifenesin 600 mg tablet, 1,200 mg PO BID PRN cough #20 tabs 09/17/23 extended release 12 hr (Mucinex) prednisone 20 mg tablet 20 mg PO BID 5 days #10 tabs 09/17/23 Allergies Allergy/AdvReac Type Severity Reaction Status Date / Time No Known Allergies Allergy Verified 07/29/23 11:57 Worker's Comp Is this a Worker's Comp case?: No [facility] Disclaimer: The information contained in this section may have been updated after the patient was seen, as this information can be updated by other users. 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) History of wisdom tooth extraction, class I edentulism Family History , AGED OR DISABLED CARER) Epilepsy Grandmother Social History Smoking Status: Former smoker tobacco type: cigarettes and smokeless tobacco years smoked: 10 quit status: considering quitting alcohol intake: never current occupational status: unemployed Travel in the last 8 weeks: None ROS Obtained: Yes All systems reviewed & no additional complaints except as documented and Yes Systems reviewed as appropriate & no additional complaints except as documented Constitutional Constitutional: Reports system reviewed and no additional complaints, except as documented, Reports as per HPI and Reports body ache ENT Ears, Nose, Mouth, and Throat: Reports system reviewed and no additional complaints, except as documented, Reports as per HPI, Reports sinus pain and Reports sinus pressure Cardiovascular Cardiovascular: Reports system reviewed and no additional complaints, except as documented and Reports as per HPI Respiratory Respiratory: Reports system reviewed and no additional complaints, except as documented, Reports as per HPI, Denies shortness of breath, Reports chest congestion and Reports cough Gastrointestinal Gastrointestingal: Reports system reviewed and no additional complaints, except as documented and as per HPI Physical Exam General General appearance: alert and in no apparent distress ENT ENT exam: Present mucous membranes moist Expanded ENT Exam Nose exam: Present sinus tenderness Throat exam: Present other (Pharyngeal erythema noted with PND) Respiratory Respiratory exam: Present normal lung sounds bilaterally; Absent respiratory distress or wheezes Cardiovascular Cardiovascular exam: Present regular rate and normal rhythm Neurological Exam Neurological exam: Present alert, oriented X3 and normal gait Medical Decision Making Harrison Inquiry Pt receiving controlled substance: No Harrison was queried for this patient: No Vital Signs: 09/17/23 11:35 Temperature 99.1 F Temperature Source Oral Pulse Rate [Left Brachial] 80 Respiratory Rate 20 Blood Pressure [Left Arm] 112/65 Blood Pressure Mean [Left Arm] 80 Blood Pressure Source [Left Arm] Automatic Cuff Blood Pressure Position [Left Arm] Sitting 02 Sat by Pulse Oximetry 97 Oxygen Delivery Method Room Air Lab Data Lab results reviewed: Yes I reviewed the patient's lab results.
[2023-09-17 11:59] LABS: UTC Influenza A Antigen Negative (Negative)
[2023-09-17 12:00] LABS: UTC Influenza B Antigen Negative (Negative)
[2023-09-17 12:11] VITALS: BP 112/65; PULSE 80; RESP 20; TEMP 37.3; O2SAT 97
== END 2023-09-17 12:17 | disposition home or self-care (01) ==
PROVIDERS: Emergency Provider Nurse Practitioner
DX: J01.90 Acute sinusitis, unspecified (principal); R09.81 Nasal congestion; R07.0 Pain in throat; R51.9 Headache, unspecified; R05.9 Cough, unspecified; M79.18 Myalgia, other site; Z87.891 Personal history of nicotine dependence
CPT/HCPCS: 87804; 99212; 99214; G0463

== ENCOUNTER 2024-06-10 10:19 | Emergency (ER) | payer OTHER, SELFPAY ==
[2024-06-10 10:45] VITALS: BP 109/73; PULSE 84; RESP 19; TEMP 36.6; O2SAT 97; BMI 28.6
--- NOTE | 2024-06-10 10:48 | ED_ITS ---
Discharge Plan Disposition Patient Disposition: Home, Self-Care Condition: Good Prescriptions Prescriptions: New azithromycin [Zithromax Z-Candelario] 250 mg tablet See Rx Instructions .ROUTE .COMPLEX 5 Days Qty: 6 0RF Rx Instructions: For 250 mg dose pack: take 500 mg today (day 1), then 250 mg for 4 days (days 2-5) methylprednisolone [Medrol (Candelario)] 4 mg tablets,dose pack See Rx Instructions .Route .COMPLEX 6 Days Qty: 21 0RF Rx Instructions: taper pack; [id number] [Bromfed DM] 2-30-10 mg/5 mL syrup 10 ml PO Q6H PRN (Reason: cold symptoms) Qty: 200 0RF Referrals Follow up/Referrals: Pastora Clayton APRN [Primary Care Provider] - See instructions Activity Restrictions/Add. Instructions Additional Instructions/Restrictions: *Monitor Temp, Over the counter Motrin or Tylenol as directed/as needed Tylenol every 4 hours and Motrin every 6 hours (as long as your family doctor has told you that you can take it) for fever or pain. and straight to ER if unable to lower temp less than 101.0 after medication given *Warm salt water gargles may help to soothe the throat *Throat Lozenges? *Warm fluids like tea with honey may help to soothe the throat? *Sleep elevated *Humidifier/Vaporizer Take medication as prescribed *Bromfed may cause drowsiness. Know how it effects you (your child) before driving, caring for small child, or sending your child to school. Not other antihistamines/allergy medications while taking bromfed Your throat swab was sent for culture. Those results are typically sent to your primary care. Be sure to follow up in 2-3 days with your family doctor/primary care physician if no improvement so they can review those result and treat if necessary. If you don?t have a primary care doctor, I recommend you get one but in the mean time, you will have to return to a walk in clinic Follow up IMMEDIATELY for new or worsening symptoms or no Noticeable improvement over the next 48-72 hours. 911 for difficulty breathing or swallowing Clinical Impressions Clinical Impression: Sinusitis Instructions Patient Instructions: DI for Sinusitis, Sinusitis Print Language Print Language: Croatian Discharge ED Provider: Yesi Mireles [facility] [place] General Stated complaint: sore throat cough congestion head ache diarrhea Time Seen by Provider: 06/10/24 10:49 History of Present Illness Provider Complaint: Patient states that he has been having sinus issues and started feeling bad on Tuesday States that he has been having sinus pain and pressure, sore throat, headache, diarrhea and over all not feeling well States that drainage in dark yellow and at times he will cough it up, States today he wasnt feeling any better so he came in to get checked Related Data Previous Rx's ?Medication ?Instructions ?Recorded azithromycin 250 mg tablet See Rx Instructions PO .COMPLEX 5 06/10/24 (Zithromax Z-Candelario) days #6 tabs [id number]-rfcalbfguflgrsz-[id number] 10 ml PO Q6H PRN cold symptoms 06/10/24 2 mg-30 mg-10 mg/5 mL oral syrup #200 mL (Bromfed DM) methylprednisolone 4 mg tablets in See Rx Instructions .Route 06/10/24 a dose pack (Medrol (Candelario)) .COMPLEX 6 days #21 tabs Allergies Allergy/AdvReac Type Severity Reaction Status Date / Time No Known Allergies Allergy Verified 07/29/23 11:57 [facility] Disclaimer: The information contained in this section may have been updated after the patient was seen, as this information can be updated by other users. 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 MANAGER) Epilepsy Grandmother Social History Smoking Status: Former smoker tobacco type: cigarettes and smokeless tobacco years smoked: 10 quit status: considering quitting alcohol intake: never current occupational status: unemployed Travel in the last 8 weeks: None ROS Obtained: Yes All systems reviewed & no additional complaints except as documented and Yes Systems reviewed as appropriate & no additional complaints except as documented Constitutional Constitutional: Reports system reviewed and no additional complaints, except as documented, Reports as per HPI and Reports headache(s) ENT Ears, Nose, Mouth, and Throat: Reports system reviewed and no additional complaints, except as documented, Reports as per HPI, Reports headache(s), Reports sinus pain, Reports sinus pressure and Reports sore throat Cardiovascular Cardiovascular: Reports system reviewed and no additional complaints, except as documented and Reports as per HPI Respiratory Respiratory: Reports system reviewed and no additional complaints, except as documented and Reports as per HPI Gastrointestinal Gastrointestingal: Reports system reviewed and no additional complaints, except as documented, as per HPI and diarrhea; Denies abdominal pain, cramping, nausea or vomiting Neurologic Neurologic: Reports headache(s) Physical Exam General General appearance: alert and in no apparent distress ENT ENT exam: Present mucous membranes moist Expanded ENT Exam Nose exam: Present sinus tenderness Throat exam: Present other (Pharyngeal erythema noted with PND) Respiratory Respiratory exam: Present normal lung sounds bilaterally; Absent respiratory distress or wheezes Cardiovascular Cardiovascular exam: Present regular rate, normal rhythm and normal heart sounds Abdominal Exam Abdominal exam: Present soft and normal bowel sounds; Absent distention or tenderness Neurological Exam Neurological exam: Present alert, oriented X3 and normal gait Medical Decision Making Medical Records Screening: Per USPSTF and CDC recommendations, given the prevalence of disease in our region, it is our hospital?s policy to screen for HIV and viral Hepatitis for all patients aged 18 and over and those with ongoing risk factors. Harrison Inquiry Pt receiving controlled substance: No Harrison was queried for this patient: No Lab Data Lab results reviewed: Yes I reviewed the patient's lab results.
[2024-06-10 11:15] LABS: UTC Influenza A Antigen Negative (Negative); UTC Influenza B Antigen Negative (Negative); UTC Strep Screen (Rapid) Negative (Negative)
[2024-06-10 11:16] VITALS: BP 109/73; PULSE 84; RESP 19; TEMP 36.6; O2SAT 97
== END 2024-06-10 11:24 | disposition home or self-care (01) ==
PROVIDERS: Emergency Provider Nurse Practitioner; PCP Nurse Practitioner Family
DX: J01.90 Acute sinusitis, unspecified (principal)
CPT/HCPCS: 87804; 87880; 99213; G0381

== ENCOUNTER 2024-08-13 11:06 | Emergency (ER) | payer OTHER, SELFPAY ==
[2024-08-13 11:30] VITALS: BP 131/84; PULSE 107; RESP 18; TEMP 36.7; O2SAT 100; BMI 28.5
--- NOTE | 2024-08-13 11:50 | EXP.UTC ---
Discharge Plan Disposition Patient Disposition: Home, Self-Care Condition: Good Prescriptions Prescriptions: New ondansetron 4 mg tablet,disintegrating 4 mg PO Q8H PRN (Reason: nausea and vomiting) Qty: 10 0RF Referrals Follow up/Referrals: Pastora Clayton APRN [Primary Care Provider] - See instructions Activity Restrictions/Add. Instructions Additional Instructions/Restrictions: Drink extra fluids with and between meals. If you have difficulty drinking, try very small amounts of water or suck on ice chips. ? Avoid fruit juices, as these do not replace minerals and can actually increase diarrhea. ? Children and adults can use sports drinks to replenish electrolytes. Younger children and infants should use products formulated for children, like oral rehydration solutions. ? Eat food in small amounts and let your stomach recover. ? Get lots of rest. You may feel tired or weak. ? No greasy or fried foods for the next 24-48 hours BRAT diet Bananas Rice Apples and [place] ? Make sure to drink plenty of liquids ? Return if needed ? Straight to ER if any life threatening symptoms ? Zofran as prescribed ? Follow up with family doctor in the next 48-72 hours if no improvement or any worsening of symptoms Clinical Impressions Clinical Impression: Viral syndrome Stand Alone Forms Stand Alone Forms: Work/School Release Instructions Patient Instructions: Diarrhea, DI for Nausea -- Adult Print Language Print Language: Portuguese Discharge ED Provider: Yesi Mireles [facility] HPI General Stated complaint: v/d stomach sore throat Mode of Arrival: Ambulatory Source of Information: Patient Limitations: No Limitations Time Seen by Provider: 08/13/24 11:50 Description of Symptoms (Recalled from Triage Doc. by RN): PATIENT C/O VOMITING, HEADACHE, SORE THROAT, AND DIARRHEA SINCE TUESDAY MORNING HEENT Symptoms (Recalled from RN notes): Yes Resp Symptoms (Recalled from RN notes): No Skin Symptoms (Recalled from RN notes): No MS Symptoms (Recalled from RN notes): No Functional Status (Recalled from RN notes): WNL History of Present Illness Provider Complaint: Patient states that last week he had some sore throat but his throat isnt hurting now, states that he was around his child with stomach bug and over the week end he had N/V/D States that he hasnt vomited since yesterday and this morning still had some diarrhea and wasnt able to go to work needing a work note Related Data Previous Rx's ?Medication ?Instructions ?Recorded ondansetron 4 mg disintegrating 4 mg PO Q8H PRN nausea and 08/13/24 tablet vomiting #10 tabs Allergies Allergy/AdvReac Type Severity Reaction Status Date / Time No Known Allergies Allergy Verified 07/29/23 11:57 Worker's Comp Is this a Worker's Comp case?: No [facility] Disclaimer: The information contained in this section may have been updated after the patient was seen, as this information can be updated by other users. 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: No Have you tested positive for COVID-19: No Exposed to someone with COVID-19 in past 14 days?: No Do you have a sore throat?: No Do you have a cough?: No Do you have any weakness?: No Do you have any diarrhea?: No Are you experiencing any unusual bleeding?: No Do you have any muscle aches/pain?: No Do you have any abdominal pain?: No Are you experiencing loss of taste or smell?: No ROS Obtained: Yes All systems reviewed & no additional complaints except as documented and Yes Systems reviewed as appropriate & no additional complaints except as documented Constitutional Constitutional: Reports system reviewed and no additional complaints, except as documented and Reports as per HPI ENT Ears, Nose, Mouth, and Throat: Reports system reviewed and no additional complaints, except as documented, Reports as per HPI and Reports sore throat (last week) Cardiovascular Cardiovascular: Reports system reviewed and no additional complaints, except as documented and Reports as per HPI Respiratory Respiratory: Reports system reviewed and no additional complaints, except as documented and Reports as per HPI Gastrointestinal Gastrointestingal: Reports system reviewed and no additional complaints, except as documented, as per HPI, diarrhea, nausea and vomiting Physical Exam General General appearance: alert and in no apparent distress ENT ENT exam: Present normal exam, normal oropharynx, mucous membranes moist and TM's normal bilaterally Respiratory Respiratory exam: Present normal lung sounds bilaterally; Absent respiratory distress or wheezes Cardiovascular Cardiovascular exam: Present regular rate, normal rhythm and normal heart sounds Abdominal Exam Abdominal exam: Present soft and normal bowel sounds; Absent distention or tenderness Neurological Exam Neurological exam: Present alert, oriented X3 and normal gait Medical Decision Making Medical Records Screening: Per USPSTF and CDC recommendations, given the prevalence of disease in our region, it is our hospital?s policy to screen for HIV and viral Hepatitis for all patients aged 18 and over and those with ongoing risk factors. Harrison Inquiry Pt receiving controlled substance: No Harrison was queried for this patient: No Vital Signs: 08/13/24 11:30 Temperature 98.0 F Temperature Source Oral Pulse Rate [Left Brachial] 107 H Respiratory Rate 18 Blood Pressure [Left Arm] 131/84 Blood Pressure Mean [Left Arm] 99 Blood Pressure Source [Left Arm] Automatic Cuff Blood Pressure Position [Left Arm] Sitting 02 Sat by Pulse Oximetry 100 Oxygen Delivery Method Room Air Medical Decision Narrative: discussed strep test and he declined, discussed diarrhea panel and he declined
[2024-08-13 12:03] VITALS: BP 131/84; PULSE 107; RESP 18; TEMP 36.7; O2SAT 100
== END 2024-08-13 12:05 | disposition home or self-care (01) ==
PROVIDERS: Emergency Provider Nurse Practitioner; PCP Nurse Practitioner Family
DX: B34.9 Viral infection, unspecified (principal)
CPT/HCPCS: 99213; G0381

== ENCOUNTER 2024-08-19 15:16 | Emergency (ER) | payer OTHER, SELFPAY ==
[2024-08-19 16:50] VITALS: BP 124/72; PULSE 62; RESP 19; TEMP 36.9; O2SAT 99; BMI 28.2
--- NOTE | 2024-08-19 17:05 | EXP.UTC ---
Discharge Plan Disposition Patient Disposition: Home, Self-Care Condition: Good Prescriptions Prescriptions: New bbnmyhukxesnyll-ybinhvoqb-XW [Bromfed DM] 2-30-10 mg/5 mL syrup 10 ml PO Q6H PRN (Reason: cold symptoms) Qty: 200 0RF No Action ondansetron 4 mg tablet,disintegrating 4 mg PO Q8H PRN (Reason: nausea and vomiting) Qty: 10 0RF Referrals Follow up/Referrals: Pastora Clayton APRN [Primary Care Provider] - See instructions Activity Restrictions/Add. Instructions Additional Instructions/Restrictions: *Monitor Temp, Over the counter Motrin or Tylenol as directed/as needed Tylenol every 4 hours and Motrin every 6 hours (as long as your family doctor has told you that you can take it) for fever or pain. and straight to ER if unable to lower temp less than 101.0 after medication given *Warm salt water gargles may help to soothe the throat *Throat Lozenges? *Warm fluids like tea with honey may help to soothe the throat? *Sleep elevated *Humidifier/Vaporizer *Bromfed may cause drowsiness. Know how it effects you (your child) before driving, caring for small child, or sending your child to school. Not other antihistamines/allergy medications while taking bromfed Your throat swab was sent for culture. Those results are typically sent to your primary care. Be sure to follow up in 2-3 days with your family doctor/primary care physician if no improvement so they can review those result and treat if necessary. If you don?t have a primary care doctor, I recommend you get one but in the mean time, you will have to return to a walk in clinic Follow up IMMEDIATELY for new or worsening symptoms or no Noticeable improvement over the next 48-72 hours. 911 for difficulty breathing or swallowing Clinical Impressions Clinical Impression: Viral upper respiratory tract infection with cough Stand Alone Forms Stand Alone Forms: Work/School Release Instructions Patient Instructions: Cough, DI for Viral Upper Respiratory Infection -- Adult Print Language Print Language: Upper Sorbian Discharge ED Provider: Suzan Bryson [facility] [place] General Stated complaint: body aches, cough, weakness Mode of Arrival: Ambulatory Source of Information: Patient Limitations: No Limitations Time Seen by Provider: 08/19/24 17:05 Description of Symptoms (Recalled from Triage Doc. by RN): PATIENT C/O BODY ACHES, CONGESTION, RUNNY NOSE, AND COUGH SINCE YESTERDAY HEENT Symptoms (Recalled from RN notes): Yes Resp Symptoms (Recalled from RN notes): Yes Skin Symptoms (Recalled from RN notes): No MS Symptoms (Recalled from RN notes): No Functional Status (Recalled from RN notes): WNL History of Present Illness Provider Complaint: Patient states that son tested positive for Flu on Tuesday States yesterday he started with body aches, chills, runny nose and cough States that today he was not feeling any better so he came in to get checked Related Data Previous Rx's ?Medication ?Instructions ?Recorded ondansetron 4 mg disintegrating 4 mg PO Q8H PRN nausea and 08/13/24 tablet vomiting #10 tabs vwrvfozwmhrazkr-saurxjpdvelwngn-HA 10 ml PO Q6H PRN cold symptoms 08/19/24 2 mg-30 mg-10 mg/5 mL oral syrup #200 mL (Bromfed DM) Allergies Allergy/AdvReac Type Severity Reaction Status Date / Time No Known Allergies Allergy Verified 07/29/23 11:57 Worker's Comp Is this a Worker's Comp case?: No [facility] Disclaimer: The information contained in this section may have been updated after the patient was seen, as this information can be updated by other users. 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) Anxiety Deviated septum Surgical History , JIVE DEVELOPER) History of wisdom tooth extraction, class I edentulism Family History , JIVE DEVELOPER) Epilepsy Grandmother Social History Smoking Status: Former smoker tobacco type: cigarettes and smokeless tobacco years smoked: 10 quit status: considering quitting alcohol intake: never current occupational status: unemployed Travel in the last 8 weeks: None Have you lived/traveled outside [place] in past 30 days?: No Contact w/someone who lives/traveled outside US past 30 days?: No Exposure to someone with infectious disease in past 14 days?: Yes Do you have a fever (greater than 100.4 F or 38 C)?: No Have you tested positive for COVID-19: No Exposed to someone with COVID-19 in past 14 days?: No Do you have a sore throat?: No Do you have a cough?: Yes Do you have any weakness?: Yes Do you have any diarrhea?: No Are you experiencing any unusual bleeding?: No Do you have any muscle aches/pain?: Yes Do you have any abdominal pain?: No Are you experiencing loss of taste or smell?: No ROS Obtained: Yes All systems reviewed & no additional complaints except as documented and Yes Systems reviewed as appropriate & no additional complaints except as documented Constitutional Constitutional: Reports system reviewed and no additional complaints, except as documented, Reports as per HPI, Reports body ache, Reports chills, Reports fatigue and Reports headache(s) ENT Ears, Nose, Mouth, and Throat: Reports system reviewed and no additional complaints, except as documented, Reports as per HPI, Reports headache(s), Reports nasal congestion and Reports nasal discharge Cardiovascular Cardiovascular: Reports system reviewed and no additional complaints, except as documented and Reports as per HPI Respiratory Respiratory: Reports system reviewed and no additional complaints, except as documented, Reports as per HPI and Reports cough Neurologic Neurologic: Reports headache(s) Endocrine Endocrine: Reports fatigue Physical Exam General General appearance: alert and in no apparent distress ENT ENT exam: Present mucous membranes moist Expanded ENT Exam Nose exam: Absent sinus tenderness Throat exam: Present normal inspection Respiratory Respiratory exam: Present normal lung sounds bilaterally; Absent respiratory distress or wheezes Cardiovascular Cardiovascular exam: Present regular rate, normal rhythm and normal heart sounds Abdominal Exam Abdominal exam: Present soft and normal bowel sounds; Absent distention or tenderness Neurological Exam Neurological exam: Present alert, oriented X3 and normal gait Medical Decision Making Medical Records Screening: Per USPSTF and CDC recommendations, given the prevalence of disease in our region, it is our hospital?s policy to screen for HIV and viral Hepatitis for all patients aged 18 and over and those with ongoing risk factors. Harrison Inquiry Pt receiving controlled substance: No Harrison was queried for this patient: No Vital Signs: 08/19/24 16:50 Temperature 98.4 F Temperature Source Oral Pulse Rate [Left Brachial] 62 Respiratory Rate 19 Blood Pressure [Left Arm] 124/72 Blood Pressure Mean [Left Arm] 89 Blood Pressure Source [Left Arm] Automatic Cuff Blood Pressure Position [Left Arm] Sitting 02 Sat by Pulse Oximetry 99 Oxygen Delivery Method Room Air Lab Data Lab results reviewed: Yes I reviewed the patient's lab results. Orders (Tests/Meds): ORDERS Category Date Time Status Covid-19 Nasal PCR ([facility]) Routine Lab 08/19/24 17:01 Ordered
[2024-08-19 17:19] LABS: UTC Influenza A Antigen Negative (Negative)
[2024-08-19 17:19] LABS: UTC Strep Screen (Rapid) Negative (Negative)
[2024-08-19 17:20] LABS: UTC Influenza B Antigen Negative (Negative)
[2024-08-19 17:35] VITALS: BP 124/72; PULSE 62; RESP 19; TEMP 36.9; O2SAT 99
== END 2024-08-19 17:37 | disposition home or self-care (01) ==
PROVIDERS: Nurse Practitioner; Physician Assistant; Emergency Provider Nurse Practitioner Family; PCP Nurse Practitioner Family
DX: J06.9 Acute upper respiratory infection, unspecified (principal); R05.9 Cough, unspecified
CPT/HCPCS: 87635; 87804; 87880; 99213; G0381

== ENCOUNTER 2025-02-12 01:38 | Emergency (ER) | payer MEDICAID, SELFPAY ==
[2025-02-12 01:52] VITALS: BP 139/98; PULSE 82; RESP 18; TEMP 36.7; O2SAT 98; BMI 27.1
--- NOTE | 2025-02-12 01:57 | HMH.EDGENADL ---
Discharge Plan Disposition Patient Disposition: Home, Self-Care Condition: Good Prescriptions Prescriptions: New ondansetron 4 mg tablet,disintegrating 4 mg PO Q6H PRN (Reason: nausea and vomiting) Qty: 10 0RF No Action tnfxvpybitabvhk-zdndlvdsr-UI [Bromfed DM] 2-30-10 mg/5 mL syrup 10 ml PO Q6H PRN (Reason: cold symptoms) Qty: 200 0RF ondansetron 4 mg tablet,disintegrating 4 mg PO Q8H PRN (Reason: nausea and vomiting) Qty: 10 0RF Referrals Follow up/Referrals: Pastora Clayton APRN [Primary Care Provider, Medical] - See instructions Activity Restrictions/Add. Instructions Additional Instructions/Restrictions: You were evaluated in the ER and are believed to be appropriate for discharge at this time. Take Tylenol and ibuprofen if needed at home, do not exceed the recommended dose on the bottle. Drink water and eat a small snack each time you take these medications to avoid side effects. Stay well-hydrated with water, Gatorade, Pedialyte. Take the prescribed ondansetron (Zofran) if you develop nausea or vomiting. Rest and recover. Make an appointment with your primary care doctor for reevaluation in 2 to 3 days, return to the ER with any new, worsening, or otherwise concerning symptoms. Clinical Impressions Clinical Impression: Nasal congestion, Pharyngitis, Body aches, Diarrhea Stand Alone Forms Stand Alone Forms: Work/School Release Print Language Print Language: Kuwaiti Discharge ED Provider: Sho De La Cruz General Adult HPI General Stated complaint: sore throat, cough, L ear pain, diarrhea, CELESTE Time Seen by Provider: 02/12/25 01:45 History of Present Illness HPI narrative: 34-year-old male presents to the ER complaining of 3 days of sore throat, body aches, cough, congestion, ear pain. He also states he has headache and has had fever up to 101 degrees at home. He also has nonbloody, nonmelanotic diarrhea. Patient reports he just feels bad . He has not had vomiting or nausea, no abdominal pain, no chest pain or difficulty breathing, no numbness, tingling, or weakness. No other complaints or concerns. Patient has no chronic medical conditions, no daily medications, no known drug allergies. Related Data Previous Rx's ?Medication ?Instructions ?Recorded ondansetron 4 mg disintegrating 4 mg PO Q8H PRN nausea and 08/13/24 tablet vomiting #10 tabs pdiocmueyifbaxf-dvcipkckydlayyo-CB 10 ml PO Q6H PRN cold symptoms 08/19/24 2 mg-30 mg-10 mg/5 mL oral syrup #200 mL (Bromfed DM) ondansetron 4 mg disintegrating 4 mg PO Q6H PRN nausea and 02/12/25 tablet vomiting #10 tabs Allergies Allergy/AdvReac Type Severity Reaction Status Date / Time No Known Allergies Allergy Verified 07/29/23 11:57 [facility] Disclaimer: The information contained in this section may have been updated after the patient was seen, as this information can be updated by other users. 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) History of wisdom tooth extraction, class I edentulism Family History , DIRECT MAIL CLERK) Epilepsy Grandmother Social History Smoking Status: Former smoker tobacco type: cigarettes and smokeless tobacco years smoked: 10 quit status: considering quitting alcohol intake: never current occupational status: unemployed Travel in the last 8 weeks?: None Have you lived/traveled outside US in past 30 days?: No Contact w/someone who lives/traveled outside US past 30 days?: No Exposure to someone with infectious disease in past 14 days?: No Do you have a fever (greater than 100.4 F or 38 C)?: No Have you tested positive for COVID-19?: No Exposed to someone with COVID-19 in past 14 days?: No Do you have a sore throat?: Yes Do you have a cough?: Yes Do you have any weakness?: No Do you have any diarrhea?: Yes Are you experiencing any unusual bleeding?: No Do you have any muscle aches/pain?: No Do you have any abdominal pain?: No Are you experiencing loss of taste or smell?: No Other 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 Have you received the Flu Vaccine for this season: No Have you received the Pneumonia Vaccine: No ROS Obtained: Yes Systems reviewed as appropriate & no additional complaints except as documented Per HPI Physical Exam General General appearance: alert and in no apparent distress Head Head exam: atraumatic and normocephalic Eye Eye exam: Present PERRL and EOMI ENT ENT exam: Present mucous membranes moist, TM's normal bilaterally and other (Very mild erythema of the posterior oropharynx but no tonsillomegaly or exudate, all structures symmetrical and midline) Neck Neck exam: Present normal inspection and full ROM; Absent lymphadenopathy Chest Chest inspection: Present symmetric chest wall rise Respiratory Respiratory exam: Present normal lung sounds bilaterally; Absent respiratory distress, wheezes or stridor Cardiovascular Cardiovascular exam: Present regular rate and normal rhythm Abdominal Exam Abdominal exam: Present soft; Absent distention or tenderness Extremities Exam Extremities exam: Present full ROM; Absent edema Neurological Exam Neurological exam: Present alert and oriented X3; Absent motor sensory deficit Psychiatric Psychiatric exam: Present normal affect and normal mood Skin Skin exam: Present warm and dry Medical Decision Making Medical Records Medical records reviewed: Yes I reviewed the patient's medical records. Screening: Per USPSTF and CDC recommendations, given the prevalence of disease in our region, it is our hospital?s policy to screen for HIV and viral Hepatitis for all patients aged 18 and over and those with ongoing risk factors. Harrison Inquiry Pt receiving controlled substance: No Medical Decision Narrative: In summary, [id number] male who is otherwise healthy presents to the emergency department today with cough, congestion, body aches, sore throat, diarrhea. On initial evaluation patient is hemodynamically stable, afebrile, lungs clear bilaterally, posterior oropharynx mildly erythematous but no tonsillomegaly or exudate, all structures midline and symmetrical, no lymphadenopathy, GCS 15, no neurologic deficits, tympanic membranes unremarkable bilaterally. I believe patient has a viral syndrome. I considered the possibility of strep patient has no evidence of this clinically with no lymphadenopathy, tonsillomegaly, or exudates. No concern for pneumonia since patient's lungs are clear bilaterally and he has no chest pain or difficulty breathing. Patient was worried about diarrhea which is likely viral in nature, his abdominal exam is completely benign and I have no concern for acute surgical pathology. He has not had significant volume losses and appears well-hydrated with normal vitals. I do not believe labs or imaging are indicated at this time. I discussed doing a viral swab with the patient but explained to him that there was no change in management if he were to be positive for a viral etiology at this time. You prefer not to do the swab which I believe is reasonable. He took Tylenol and ibuprofen prior to arrival. No medications are being administered in the ER. I did prescribe Zofran in case the patient develops nausea or vomiting with his other viral symptoms. He is appropriate for discharge at this time and was given instructions on continued symptomatic monitoring, follow-up, and return precautions. He indicated understanding and the patient was discharged in stable condition. Critical Care Critical Care Time Critical Care Time: No
[2025-02-12 02:05] VITALS: BP 124/87; PULSE 71; RESP 18; TEMP 36.7; O2SAT 96
== END 2025-02-12 02:06 | disposition home or self-care (01) ==
PROVIDERS: Emergency Provider Emergency Medicine; PCP Nurse Practitioner Family
DX: J02.9 Acute pharyngitis, unspecified (principal); R51.9 Headache, unspecified; R09.81 Nasal congestion; R19.7 Diarrhea, unspecified
CPT/HCPCS: 99282